=== PATIENT | male | born 1945 | race Caucasian/White ===

== ENCOUNTER → 2020-01-09 10:07 | Outpatient (CLI) | payer MEDICARE, SELFPAY ==
--- NOTE | ~2020-01-09 | MR_ITS ---
EXAMINATION: MR shoulder LT wo con DATE: 01/09/2020 11:16 INDICATION: Left shoulder pain. TECHNIQUE: Magnetic resonance imaging (MRI) of the left shoulder was performed without intravenous co ntrast. Sequences included axial PD-weighted FS FSE, coronal oblique PD-weighted FS FSE and T2-weight ed FS FSE, and sagittal oblique T2-weighted FS FSE and T1-weighted FSE. COMPARISON: Left shoulder radiographs 11/04/2019 FINDINGS: Coracoacromial arch: The acromion undersurface is curved in morphology (type II). Subacromial spurring is noted. There is mild acromioclavicular joint osteoarthritis. There is mild subacromial/subdeltoid bursitis. Rotator cuff: There is a full-thickness tear of supraspinatus tendon measuring 1.6 cm anterior to posterior by 2.4 cm proximal to distal. There is moderate infraspinatus tendinopathy. Teres minor tendon is normal. Th ere is moderate subscapularis tendinopathy with articular sided partial-thickness tear. There is mild fatty atrophy of subscapularis muscle belly. Biceps tendon and glenoid labrum: There is a partial tear of proximal biceps tendon, a portion of which is perched at the medial lip of the bicipital groove. There is a tear of superior labrum from 11:00 to 12:00 (SLAP tear). Fluid: There is no glenohumeral joint effusion. Bones/cartilage: There is cartilage surface irregularity of glenoid. Humeral head cartilage is normal. IMPRESSION: 1. Full-thickness rotator cuff tear. 2. Mild glenoid chondrosis. SLAP tear. 3. Partial tear of proximal biceps tendon. 4. Mild acromioclavicular joint osteoarthritis. 5. Mild subacromial/subdeltoid bursitis. Reviewed, dictated and finalized at location A.
== END ==
PROVIDERS: PCP Student in an Organized Health Care Education/Training Program; Visit Provider Orthopaedic Surgery
DX: M19.012 Primary osteoarthritis, left shoulder (principal); M75.52 Bursitis of left shoulder
CPT/HCPCS: 73221

== ENCOUNTER 2020-02-15 00:25 | Outpatient (CLI) | payer MEDICARE, SELFPAY ==
[2020-02-15 19:58] LABS: SARS-CoV-2 RNA PCR Negative
== END 2020-02-15 00:26 | disposition home or self-care (01) ==
LOC: ANHCOVIDDT 00:25
PROVIDERS: PCP Student in an Organized Health Care Education/Training Program; Visit Provider Internal Medicine Gastroenterology
DX: Z01.812 Encounter for preprocedural laboratory examination (principal); Z20.828 Contact with and (suspected) exposure to other viral communicable diseases
CPT/HCPCS: 87635; C9803; U0003

== ENCOUNTER 2020-02-17 03:26 | Day surgery (SDC) | payer MEDICARE, SELFPAY ==
[2020-02-10 12:05] VITALS: BMI 21.4
[2020-02-17 08:41] VITALS: BP 170/75; PULSE 69; RESP 16; TEMP 36.7; O2SAT 98; BMI 21.4
--- NOTE | 2020-02-17 08:45 | WPDANESEPPF ---
Anes - Initial Pre Proc Eval Procedure: Operation Date: 02/17/20 09:30 Proposed Procedures p Esophagogastroduodenoscopy - Rosales Kahn MD Date/Time: 02/17/20 08:45 Surgeon: Rosales Kahn MD Pre Op Diagnosis: dysphagia Patient Data Age: 74 Gender: M Height: 5 ft 10 in Weight: 67.7 kg Last Vital Signs Temp 36.7 C 02/17/20 08:41 Pulse 69 02/17/20 08:41 Resp 16 02/17/20 08:41 BP 170/75 H 02/17/20 08:41 Pulse Ox 98 02/17/20 08:41 Allergies Allergy/AdvReac Type Severity Reaction Status Date / Time azithromycin AdvReac Unknown Diarrhea Verified 02/17/20 08:39 Home Medications Medication Instructions Recorded Confirmed Type Lactobacillus acidophilus 100 mmu cells PO DAILY 07/29/19 02/10/20 History chondroitin sulfate A sodium 400 400 mg PO DAILY 07/29/19 02/10/20 History mg capsule coenzyme Q10 300 mg capsule 300 mg PO DAILY 07/29/19 02/10/20 History famotidine 20 mg tablet 20 mg PO DAILY 07/29/19 02/10/20 History ppczzjrotfn-cku-xrcgavezo-vitC 1 cap PO .QD cap 07/29/19 02/17/20 History capsule loperamide 2 mg capsule 2 mg PO .COMPLEX PRN 07/29/19 02/17/20 History loratadine 10 mg tablet 10 mg PO DAILY 07/29/19 02/10/20 History magnesium oxide 500 mg capsule 500 mg PO DAILY 07/29/19 02/10/20 History multivitamin with iron 1 tablet PO DAILY 07/29/19 02/10/20 History mupirocin 2 % topical ointment 1 applic TOPICAL BID 07/29/19 02/10/20 History naproxen sodium 220 mg tablet 220 mg PO Q12H 07/29/19 02/10/20 History simethicone 125 mg capsule 125 mg PO DAILY PRN 07/29/19 02/10/20 History triamcinolone acetonide 0.1 % 1 applic TOPICAL BID 07/29/19 02/10/20 History topical cream lactase 9,000 unit tablet 9,000 unit PO ONCE 11/04/19 02/10/20 History gemfibrozil 600 mg tablet 600 mg PO BID #180 tablet 11/12/19 02/10/20 Rx levothyroxine 150 mcg tablet 150 mcg PO DAILY #90 tablet 12/02/19 02/10/20 Rx losartan 50 mg tablet See Rx Instructions .ROUTE 12/22/19 02/10/20 Rx .COMPLEX #90 tablet Patient hx anesthesia problems: none Family hx anesthesia problems: none PMFSH Past Medical History Medical History BMI 21.0-21.9, adult Hemoglobin A1c less than 7.0% Hypertension Personal history of malignant neoplasm of thyroid Tear of left rotator cuff Type 2 diabetes mellitus without complication, without long-term current use of insulin Surgical History Surgical History H/O arthroscopic knee surgery (~2001) Dr. Cottrell H/O rotator cuff surgery (~2003) right 2003 Family History Family History Mother Family history of malignant neoplasm of cervix Patient's mother is Father Patient's father is Social History Social History Smoking status: Never smoker Second hand tobacco smoke exposure: No Alcohol intake: never Substance use: never Living arrangements: with roommate(s) Additional occupation/education comments: retired from [employer] Gender identity (if verbalized by the patient): Male Spiritual care concerns: No Anes - Eval Final PreProcedure Day of Procedure 02/17/20 08:45 Patient weight: normal Heart: regular rate and rhythm Lungs: clear to auscultation Airway: Mallampati scale class 1 Neurological: alert and oriented Last oral intake: >/= 8 hours ASA classification: III Emergent: no Anesthetic plan: proceed Anesthesia type and monitoring: general GIVS and standard monitoring Informed Consent: The patient's anesthetic plan and its attendant risks and benefits were discussed with the patient/family/POA. Questions were solicited and answers provided to the satisfaction of the patient/family/POA.
--- NOTE | 2020-02-17 08:53 | WPDGICN ---
Assessment and Plan Assessment and plan (1) Dysphagia: Code(s): R13.10 - Dysphagia, unspecified Status: Acute Assessment and Plan: Patient has recent difficulty swallowing period to assess this more thoroughly an EGD will be performed further recommendations will be given after endoscopy. (2) History of colon polyps: Code(s): Z86.010 - Personal history of colonic polyps Status: Acute Assessment and Plan: Patient has a history of adenomatous colon polyp removed from the colon in 2018. It was benign. Plan is for surveillance colonoscopy in 2022. If he remains asymptomatic. GI Consult Note Consult date/time: 02/17/20 08:53 HPI: Christian Carrion is a 74 year old male Seen in evaluation at the request of Dr. Kirit Huerta. patient reports difficulty swallowing. He reports having a pill caught in his throat. He frequently will notice slow passage through the esophagus. He states several episodes of occurred intermittently. He also notes shortness of breath during this period of time. He complains of excessive mucus production. Today he presents for an EGD to assess more thoroughly. Past medical history is significant for an adenomatous colon polyp removed from the colon in 2018. Family history is noncontributory. Review of Systems Review of Systems: All systems reviewed & are unremarkable except as noted in HPI and below PMFSH Past Medical History Medical History BMI 21.0-21.9, adult Hemoglobin A1c less than 7.0% Hypertension Personal history of malignant neoplasm of thyroid Tear of left rotator cuff Type 2 diabetes mellitus without complication, without long-term current use of insulin Surgical History Surgical History H/O arthroscopic knee surgery (~2001) Dr. Cottrell H/O rotator cuff surgery (~2003) right 2003 Family History Family History Mother Family history of malignant neoplasm of cervix Patient's mother is Father Patient's father is Social History Social History Smoking status: Never smoker Second hand tobacco smoke exposure: No Alcohol intake: never Substance use: never Living arrangements: with roommate(s) Additional occupation/education comments: retired from [employer] Gender identity (if verbalized by the patient): Male Spiritual care concerns: No Meds Home Medications and Allergies Home Medications Medication Instructions Recorded Confirmed Type Lactobacillus acidophilus 100 mmu cells PO DAILY 07/29/19 02/10/20 History chondroitin sulfate A sodium 400 400 mg PO DAILY 07/29/19 02/10/20 History mg capsule coenzyme Q10 300 mg capsule 300 mg PO DAILY 07/29/19 02/10/20 History famotidine 20 mg tablet 20 mg PO DAILY 07/29/19 02/10/20 History svntvxhsnsq-vkg-yqkvegkbi-vitC 1 cap PO .QD cap 07/29/19 02/17/20 History capsule loperamide 2 mg capsule 2 mg PO .COMPLEX PRN 07/29/19 02/17/20 History loratadine 10 mg tablet 10 mg PO DAILY 07/29/19 02/10/20 History magnesium oxide 500 mg capsule 500 mg PO DAILY 07/29/19 02/10/20 History multivitamin with iron 1 tablet PO DAILY 07/29/19 02/10/20 History mupirocin 2 % topical ointment 1 applic TOPICAL BID 07/29/19 02/10/20 History naproxen sodium 220 mg tablet 220 mg PO Q12H 07/29/19 02/10/20 History simethicone 125 mg capsule 125 mg PO DAILY PRN 07/29/19 02/10/20 History triamcinolone acetonide 0.1 % 1 applic TOPICAL BID 07/29/19 02/10/20 History topical cream lactase 9,000 unit tablet 9,000 unit PO ONCE 11/04/19 02/10/20 History gemfibrozil 600 mg tablet 600 mg PO BID #180 tablet 11/12/19 02/10/20 Rx levothyroxine 150 mcg tablet 150 mcg PO DAILY #90 tablet 12/02/19 02/10/20 Rx losartan 50 mg tablet See Rx Instructio
[2020-02-17] MEDS: LACTATED RINGERS 1,000 ML 150 ML IV CONT (08:54)
[2020-02-17 10:05] VITALS: BP 125/77; PULSE 64; RESP 18; O2SAT 100
[2020-02-17 10:15] VITALS: BP 111/69; PULSE 61; RESP 18; O2SAT 96
[2020-02-17 10:21] VITALS: BP 112/72; PULSE 60; RESP 18; O2SAT 96
== END 2020-02-17 10:43 | disposition home or self-care (01) ==
PROVIDERS: PCP Student in an Organized Health Care Education/Training Program; Visit Provider Internal Medicine Gastroenterology
PROC: 0DJ08ZZ Inspection of Upper Intestinal Tract, Via Natural or Artificial Opening Endoscopic (ICD-10-PCS; CPT 43235; principal; 2020-02-17 09:30)
DX: R13.10 Dysphagia, unspecified (principal); Z86.010 Personal history of colon polyps; I10 Essential (primary) hypertension; E11.9 Type 2 diabetes mellitus without complications; Z85.850 Personal history of malignant neoplasm of thyroid
CPT/HCPCS: 43450; 43235; J2704; J7120

== ENCOUNTER → 2020-05-27 11:20 | Outpatient (CLI) | payer MEDICARE, SELFPAY ==
--- NOTE | ~2020-05-27 | CT_ITS ---
EXAMINATION: CT abdomen pelvis w con INDICATION: Right upper quadrant mass TECHNIQUE: Computed tomographic images of the abdomen and pelvis were obtained after the administrati on of 100 cc of Omnipaque 350 intravenous contrast. The dose-length product (DLP) was 445.57 mGy-cm. Automated exposure control and iterative reconstruction technique were employed. COMPARISON: None available FINDINGS: The lung bases are clear. The heart size is normal. The liver, spleen, gallbladder, and adr enal glands are normal. There are calcifications throughout the pancreas, particularly in the head of the pancreas. Hypoattenuating lesions in the kidneys, measuring up to 4 mm on the right, are too sma ll to characterize but likely represent cysts. There is calcified atherosclerosis of the aorta and ma ny of the other arteries. No pathologically enlarged abdominal or pelvic lymph nodes are identified. There is no free intraperitoneal gas or evidence of bowel obstruction. The appendix is normal. There are bilateral inguinal hernias containing fat. There is mild lumbar spondylosis. IMPRESSION: 1. Calcifications of the pancreas, consistent with chronic pancreatitis. No suspicious right upper qu adrant mass identified. Reviewed, dictated and finalized at location A. [employer] IMPRESSION: 1. Calcifications of the pancreas, consistent with chronic pancreatitis. No syd picious right upper quadrant mass identified.
[2020-05-27 11:52] LABS: Estimated Glomerular Filt Rate > 60
== END ==
PROVIDERS: PCP Student in an Organized Health Care Education/Training Program; Visit Provider Student in an Organized Health Care Education/Training Program
DX: R19.01 Right upper quadrant abdominal swelling, mass and lump (principal)
CPT/HCPCS: 74177; Q9967

== ENCOUNTER → 2021-01-31 15:50 | Outpatient (CLI) | payer MEDICARE, SELFPAY ==
--- NOTE | ~2021-01-31 | XR_ITS ---
EXAMINATION: XR shoulder RT min 2V DATE: 01/31/2021 16:19 INDICATION: Right shoulder pain. TECHNIQUE: 4 views of right shoulder were obtained. COMPARISON: None. FINDINGS: Bone alignment is normal. No fracture. There are likely changes of distal clavicle resectio n. There is mild glenohumeral joint osteoarthritis. There is small loose bodies in subacromial/subdel toid bursa. There is surgical clips in the neck. IMPRESSION: 1. Mild glenohumeral joint osteoarthritis. 2. Small loose bodies in subacromial/subdeltoid bursa. Reviewed, dictated and finalized at location A.
== END ==
PROVIDERS: Visit Provider Orthopaedic Surgery
DX: M25.511 Pain in right shoulder (principal); M19.011 Primary osteoarthritis, right shoulder; M24.011 Loose body in right shoulder
CPT/HCPCS: 73030

== ENCOUNTER 2022-04-07 19:07 | Emergency (ER) | payer MEDICARE, SELFPAY ==
[2022-04-07 19:47] VITALS: BP 125/71; PULSE 87; RESP 16; TEMP 36.8; O2SAT 96
[2022-04-07 23:24] VITALS: BP 151/74; PULSE 89; RESP 16; O2SAT 96
--- NOTE | 2022-04-08 02:38 | ED.GENADULT ---
HPI - General Adult General Chief complaint: Upper Respiratory Infection Stated complaint: sore throat. COVID + Time Seen by Provider: 04/08/22 02:29 History of Present Illness HPI narrative: 76-year-old male here for evaluation of sore throat for the past day. He is tolerating his secretions. No vocal changes or trismus. Patient took a COVID test that was positive. Presents to the ED stating he is unsure what to do now. He has not taken any meds at home. He previously healthy; takes meds for thyroid and high cholesterol but has no cardiopulmonary disease. No chest pain, cough, shortness of breath, fevers or chills, nausea or vomiting, abdominal pain, leg swelling. Related Data Home Medications Medication Instructions Recorded Confirmed Lactobacillus acidophilus 100 mmu cells PO DAILY 07/29/19 03/15/22 chondroitin sulfate A sodium 400 400 mg PO DAILY 07/29/19 03/15/22 mg capsule coenzyme Q10 300 mg capsule (Co 300 mg PO DAILY 07/29/19 03/15/22 Q-10) famotidine 20 mg tablet 20 mg PO DAILY 07/29/19 03/15/22 xqtqayrxkuo-cxs-xlipghqgq-vitC 1 cap PO .QD 07/29/19 03/15/22 capsule (Glucosamine Complex-MSM capsule) loperamide 2 mg capsule 2 mg PO .COMPLEX PRN Diarrhea 07/29/19 03/15/22 loratadine 10 mg tablet (Claritin) 10 mg PO DAILY 07/29/19 03/15/22 magnesium oxide 500 mg capsule 500 mg PO DAILY 07/29/19 03/15/22 multivitamin with iron 1 tablet PO DAILY 07/29/19 03/15/22 mupirocin 2 % topical ointment 1 applic topical BID 07/29/19 03/15/22 naproxen sodium 220 mg tablet 220 mg PO Q12H 07/29/19 03/15/22 (Aleve) simethicone 125 mg capsule (Gas-X 125 mg PO DAILY PRN Itching 07/29/19 02/01/21 Extra Strength) triamcinolone acetonide 0.1 % 1 applic topical BID 07/29/19 02/01/21 topical cream Allergies Allergy/AdvReac Type Severity Reaction Status Date / Time lisinopril AdvReac Mild cough Verified 03/15/22 10:15 azithromycin AdvReac Unknown Diarrhea Verified 03/15/22 10:15 Review of Systems Review of Systems: Gen.: Denies fevers or chills Eyes: Denies eye pain or visual change ENT: Reports sore throat Respiratory: Denies shortness of breath or cough CV: Denies chest pain or palpitations GI: Denies abdominal pain nausea, emesis or diarrhea denies burning, urgency, frequency or hematuria Musculoskeletal: Denies back pain or muscle pain Neuro: Denies numbness, tingling, weakness or focal weakness Skin: Denies rash Except as documented, all other systems reviewed and negative PMFSH Past Medical History Medical History BMI 21.0-21.9, adult Hemoglobin A1c less than 7.0% Hypertension Personal history of malignant neoplasm of thyroid Tear of left rotator cuff Type 2 diabetes mellitus without complication, without long-term current use of insulin Surgical History Surgical History H/O arthroscopic knee surgery (~2001) Dr. Cottrell H/O rotator cuff surgery (~2003) right 2003 Family History Family History Mother Family history of malignant neoplasm of cervix Patient's mother is Father Patient's father is Social History Social History Smoking status: Never smoker Second hand tobacco smoke exposure: No Alcohol intake: never Alcohol use details: occasional Substance use: never Additional occupation/education comments: retired from [employer] Gender identity (if verbalized by the patient): Male Spiritual care concerns: No Exam Narrative: APPEARANCE: Well appearing, no pain in distress, well-nourished. Head: Normocephalic and atraumatic. EYES: PERRLA/EOMI, conjunctivae clear NOSE: No nasal drainage EARS: External ear normal in appearance THROAT: Erythematous posterior oropharynx. No tonsillar swelling. No uvular
[2022-04-08 04:26] VITALS: BP 123/87; PULSE 79; RESP 18; TEMP 36.8; O2SAT 98
== END 2022-04-08 04:30 | disposition home or self-care (01) ==
LOC: ANHED 04-08 02:38
PROVIDERS: Emergency Provider Physician Assistant; PCP Student in an Organized Health Care Education/Training Program
DX: U07.1 COVID-19 (principal); I10 Essential (primary) hypertension; E11.9 Type 2 diabetes mellitus without complications; Z85.850 Personal history of malignant neoplasm of thyroid
CPT/HCPCS: 96372; 99283; J1100

== ENCOUNTER 2022-07-26 00:44 | Day surgery (SDC) | payer MEDICARE, SELFPAY ==
[2022-07-13 14:18] VITALS: BMI 21.6
[2022-07-26 09:29] VITALS: BP 145/77; PULSE 76; RESP 18; TEMP 36.3; O2SAT 96; BMI 21.7
[2022-07-26] MEDS: LACTATED RINGERS 1,000 ML 150 ML IV CONT (09:31)
--- NOTE | 2022-07-26 09:36 | PM.HPGS ---
History of Present Illness History of Present Illness Consent: Risks, benefits, and alternatives have been discussed and questions answered. Patient agrees to proceed with procedure. Chief complaint: neoplasm screening Narrative: Christian Carrion is a 77 year old male Presents for screening colonoscopy. Patient's current weight appetite and bowel movements are normal. Patient denies abdominal pain. He has had no bleeding. Family history is noncontributory. Patient does have a prior history of colon polyps removed from the colon 2017. Review of Systems Review of Systems: Review of systems noncontributory. 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 Tear of left rotator cuff Type 2 diabetes mellitus without complication, without long-term current use of insulin Surgical History Surgical History H/O arthroscopic knee surgery (~2001) Dr. Cottrell H/O rotator cuff surgery (~2003) right 2003 Family History Family History Mother Family history of malignant neoplasm of cervix Patient's mother is Father Patient's father is Social History Social History Smoking status: Never smoker Second hand tobacco smoke exposure: No Alcohol intake: current Alcohol use details: occasional glass of wine 1-2 x month Substance use: never Substance use type: does not use Living arrangements: with friend(s) Occupation/Education: retired Additional occupation/education comments: retired from [employer] Gender identity (if verbalized by the patient): Male Spiritual care concerns: No Meds Home Medications and Allergies Home Medications Medication Instructions Recorded Confirmed Type Lactobacillus acidophilus 100 mmu cells PO DAILY 07/29/19 07/26/22 History chondroitin sulfate A sodium 400 400 mg PO DAILY 07/29/19 07/26/22 History mg capsule coenzyme Q10 300 mg capsule (Co 300 mg PO DAILY 07/29/19 07/26/22 History Q-10) famotidine 20 mg tablet 20 mg PO DAILY 07/29/19 07/26/22 History wviuvidbxvw-gco-izxurugpg-vitC 1 cap PO .QD 07/29/19 07/26/22 History capsule (Glucosamine Complex-MSM capsule) loperamide 2 mg capsule 2 mg PO .COMPLEX PRN Diarrhea 07/29/19 07/26/22 History loratadine 10 mg tablet (Claritin) 10 mg PO DAILY 07/29/19 07/26/22 History magnesium oxide 500 mg capsule 500 mg PO DAILY 07/29/19 07/26/22 History mupirocin 2 % topical ointment 1 applic topical BID 07/29/19 07/26/22 History naproxen sodium 220 mg tablet 220 mg PO Q12H 07/29/19 07/26/22 History (Aleve) simethicone 125 mg capsule (Gas-X 125 mg PO DAILY PRN Itching 07/29/19 07/26/22 History Extra Strength) triamcinolone acetonide 0.1 % 1 applic topical BID 07/29/19 07/26/22 History topical cream losartan 50 mg tablet See Rx Instructions .Route 12/22/19 07/26/22 Rx .COMPLEX #90 tabs levothyroxine 150 mcg tablet See Rx Instructions .Route 03/03/20 07/26/22 Rx .COMPLEX #90 tabs celecoxib 200 mg capsule (Celebrex) 200 mg PO DAILY #30 caps 06/27/22 07/26/22 Rx multivitamin 1 tablet PO DAILY 06/27/22 07/26/22 History Allergies Allergy/AdvReac Type Severity Reaction Status Date / Time lisinopril AdvReac Mild cough Verified 07/26/22 09:27 azithromycin AdvReac Unknown Diarrhea Verified 07/26/22 09:27 Vital Signs Vital Signs - 24 hr 07/26/22 09:29 Temperature 97.4 F L Pulse Rate 76 Respiratory Rate 18 Blood Pressure 145/77 H Pulse Oximetry 96 Oxygen Delivery Room Air Exam Narrative: Physical exam reveals patient to be alert. Vital signs stable. HEENT exam is un
--- NOTE | 2022-07-26 10:38 | WPDANESEPPF ---
Anes - Initial Pre Proc Eval Procedure: Operation Date: 07/26/22 10:30 Proposed Procedures p Screening Colonoscopy - Rosales Kahn MD Date/Time: 07/26/22 10:38 Surgeon: Rosales Kahn MD Pre Op Diagnosis: neoplasm screening Patient Data Age: 77 Gender: M Height: 1.78 m Weight: 68.6 kg Last Vital Signs Temp 97.4 F L 07/26/22 09:29 Pulse 76 07/26/22 09:29 Resp 18 07/26/22 09:29 BP 145/77 H 07/26/22 09:29 Pulse Ox 96 07/26/22 09:29 O2 Del Method Room Air 07/26/22 09:29 Allergies Allergy/AdvReac Type Severity Reaction Status Date / Time lisinopril AdvReac Mild cough Verified 07/26/22 09:27 azithromycin AdvReac Unknown Diarrhea Verified 07/26/22 09:27 Home Medications Medication Instructions Recorded Confirmed Type Lactobacillus acidophilus 100 mmu cells PO DAILY 07/29/19 07/26/22 History chondroitin sulfate A sodium 400 400 mg PO DAILY 07/29/19 07/26/22 History mg capsule coenzyme Q10 300 mg capsule (Co 300 mg PO DAILY 07/29/19 07/26/22 History Q-10) famotidine 20 mg tablet 20 mg PO DAILY 07/29/19 07/26/22 History xchrjfxslba-biw-qxbtnmfyt-vitC 1 cap PO .QD 07/29/19 07/26/22 History capsule (Glucosamine Complex-MSM capsule) loperamide 2 mg capsule 2 mg PO .COMPLEX PRN Diarrhea 07/29/19 07/26/22 History loratadine 10 mg tablet (Claritin) 10 mg PO DAILY 07/29/19 07/26/22 History magnesium oxide 500 mg capsule 500 mg PO DAILY 07/29/19 07/26/22 History mupirocin 2 % topical ointment 1 applic topical BID 07/29/19 07/26/22 History naproxen sodium 220 mg tablet 220 mg PO Q12H 07/29/19 07/26/22 History (Aleve) simethicone 125 mg capsule (Gas-X 125 mg PO DAILY PRN Itching 07/29/19 07/26/22 History Extra Strength) triamcinolone acetonide 0.1 % 1 applic topical BID 07/29/19 07/26/22 History topical cream losartan 50 mg tablet See Rx Instructions .Route 12/22/19 07/26/22 Rx .COMPLEX #90 tabs levothyroxine 150 mcg tablet See Rx Instructions .Route 03/03/20 07/26/22 Rx .COMPLEX #90 tabs celecoxib 200 mg capsule (Celebrex) 200 mg PO DAILY #30 caps 06/27/22 07/26/22 Rx multivitamin 1 tablet PO DAILY 06/27/22 07/26/22 History Patient hx anesthesia problems: none Family hx anesthesia problems: none Results Review: All pre-operative results and documents have been reviewed as part of the pre-operative evaluation. 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 Tear of left rotator cuff Type 2 diabetes mellitus without complication, without long-term current use of insulin Surgical History Surgical History H/O arthroscopic knee surgery (~2001) Dr. Cottrell H/O rotator cuff surgery (~2003) right 2003 Family History Family History Mother Family history of malignant neoplasm of cervix Patient's mother is Father Patient's father is Social History Social History Smoking status: Never smoker Second hand tobacco smoke exposure: No Alcohol intake: current Alcohol use details: occasional glass of wine 1-2 x month Substance use: never Substance use type: does not use Living arrangements: with friend(s) Occupation/Education: retired Additional occupation/education comments: retired from [employer] Gender identity (if verbalized by the patient): Male Spiritual care concerns: No Anes - Eval Final PreProcedure Day of Procedure 07/26/22 10:38 Patient weight: normal Heart: regular rate and rhythm Lungs: clear to auscultation Airway: Mallampati scale class II Neurological: alert and oriented Last oral
[2022-07-26] MEDS: SIMETHICONE ORAL SUSPENSION 20 MG/0.3 ML 30 ML BOTTLE 0.6 ML IRRIGATION (10:56)
[2022-07-26 11:02] VITALS: BP 82/45; PULSE 57; RESP 15; O2SAT 94
[2022-07-26 11:12] VITALS: BP 107/64; PULSE 56; RESP 19; O2SAT 95
[2022-07-26 11:21] VITALS: BP 110/65; PULSE 58; RESP 19; O2SAT 94
== END 2022-07-26 11:31 | disposition home or self-care (01) ==
PROVIDERS: PCP Student in an Organized Health Care Education/Training Program; Visit Provider Internal Medicine Gastroenterology
PROC: 0DJD8ZZ Inspection of Lower Intestinal Tract, Via Natural or Artificial Opening Endoscopic (ICD-10-PCS; CPT 45378; principal; 2022-07-26 10:30)
DX: Z12.11 Encounter for screening for malignant neoplasm of colon (principal); K64.8 Other hemorrhoids; Z86.010 Personal history of colon polyps; I10 Essential (primary) hypertension; E11.9 Type 2 diabetes mellitus without complications; Z85.850 Personal history of malignant neoplasm of thyroid
CPT/HCPCS: G0105; J2704; J7120

== ENCOUNTER 2023-09-11 16:07 | Outpatient (CLI) | payer MEDICARE, SELFPAY ==
--- NOTE | ~2023-09-11 | XR_ITS ---
EXAM: XR shoulder RT min 2V, XR shoulder LT min 2V DATE: 09/11/2023 16:20 HISTORY: M75.101 - Unspecified rotator cuff tear or rupture of rig... . COMPARISON: Right shoulder 06/27/2022 images only, 01/31/2021; left shoulder 03/15/2022. FINDINGS: Mildly decreased mineralization. No fracture or dislocation. 9 mm lytic lesion in the prox imal right humerus. Mild right AC joint widening, possibly secondary to low-grade AC joint injury or distal clavicular resection. Mild degenerative change in the bilateral glenohumeral joints. Bilateral superior humeral head migration. Stable ossific fragment at the tip of the acromion, likely old frac tured osteophyte versus other loose body in the subacromial bursa. No erosion or periosteal change. S oft tissues within normal limits. IMPRESSION: Mild bilateral glenohumeral osteoarthritis. Findings suggestive of bilateral rotator cuff pathology. 9 mm lytic lesion in the proximal right humerus, correlate with history of (or consider evaluation fo r) cancer or multiple myeloma. Reviewed, dictated and finalized at location K. IMPRESSION: Mild bilateral glenohumeral osteoarthritis. Findings suggestive of bilateral rotator cuff pathology. 9 mm lytic lesion in the proximal right humerus, correlate with history of (or consider evaluation for) cancer or multiple myeloma.
== END 2023-09-11 16:08 ==
PROVIDERS: PCP Orthopaedic Surgery; Visit Provider Orthopaedic Surgery
DX: M75.101 Unspecified rotator cuff tear or rupture of right shoulder, not specified as traumatic (principal); M75.122 Complete rotator cuff tear or rupture of left shoulder, not specified as traumatic; M19.012 Primary osteoarthritis, left shoulder; M19.011 Primary osteoarthritis, right shoulder; M89.9 Disorder of bone, unspecified
CPT/HCPCS: 73030